=== PATIENT | female | born 1950 | race Caucasian/White ===

== ENCOUNTER 2024-01-27 21:52 | Emergency (ER) | payer MEDICARE ==
[~2024-01-27] VITALS: Ht 165.1 cm; Wt 77.1 kg
[2024-01-28] MEDS ORDERED: CEPH500 PO (01:22)
== END 2024-01-28 02:00 | disposition home or self-care (01) ==
LOC: ER 21:52
DX: S90.822A Blister (nonthermal), left foot, initial encounter (principal); S90.821A Blister (nonthermal), right foot, initial encounter; I48.91 Unspecified atrial fibrillation; X58.XXXA Exposure to other specified factors, initial encounter; Z88.8 Allergy status to other drugs, medicaments and biological substances
CPT/HCPCS: 99282